=== PATIENT | male | born 1965 ===

== ENCOUNTER 2025-06-23 14:04 | Emergency (ER) | payer SELFPAY ==
[~2025-06-23] VITALS: Ht 175.3 cm; Wt 99.0 kg
[2025-06-23 14:11] VITALS: O2SAT 97
[2025-06-23 14:34] VITALS: BP 152/87; PULSE 60; RESP 16; TEMP 36.7; O2SAT 97
[2025-06-23] MEDS ORDERED: AMLO5TAB88 MT (14:38)
== END 2025-06-23 14:37 | disposition home or self-care (01) ==
LOC: ER 14:04
DX: I10 Essential (primary) hypertension (principal); E11.9 Type 2 diabetes mellitus without complications
CPT/HCPCS: 99283